=== PATIENT | male | born 1965 | race Caucasian/White ===

== ENCOUNTER 2017-04-28 17:15 | Emergency (ER) | payer OTHER ==
[2017-04-28] MEDS ORDERED: Tetan/Diph/Pertus SYR(Tdap)* 0.5 ML SYR(BOOSTRIX) use SYR IM ONE (19:56)
[2017-04-28] MEDS ORDERED: oxyCODONE/Acetamin 5/325 MG* TAB PO ONE (20:02)
--- NOTE | 2017-04-28 20:49 | RAD ---
INDICATION: Left third digit injury COMPARISON: None TECHNIQUE: AP, lateral, and oblique views were obtained. FINDINGS: There is no acute fracture. There is soft tissue injury near the tuft. There is no foreign body. IMPRESSION: SOFT TISSUE INJURY. NO FRACTURE OR FOREIGN BODY.
[2017-04-28] MEDS ORDERED: Cephalexin CAP* 500 MG PO ONE (21:21)
[2017-04-28] MEDS ORDERED: HYDROcodone/ACETAMIN 5-325 MG* 1 TAB PO ONE (21:21)
--- NOTE | 2017-04-28 21:25 | ED ---
Laceration/Wound HPI - HPI Summary HPI Summary: 51 male presents with complaints of left middle finger amputation while trying to change the height of his mower blade and it getting caught. Patient states this occurred ~2-3 hours ago. Bleeding is under control however his finger is very painful. Has FROM, did not injure the nail. No other injuries or complaints. Has not taken any medications. No PMHx. Touch makes the pain worse. Denies any bone involvement. Unknown last tetanus. Denies numbness/tingling. Has been icing. - History of Current Complaint Stated Complaint: FINGER LAC FROM CYBER ANALYST BLADE Hx Obtained From: Patient Mechanism of Injury: Sharp/Blunt Trauma - mower blade Onset/Duration: Sudden Onset Aggravating: Movement - touch Alleviating: Compression Timing: Constant Onset Severity: Moderate Current Severity: Moderate Pain Intensity: 6 Pain Scale Used: 0-10 Numeric Associated Signs & Symptoms: Pain Related Hx: Dominant Hand (Left) - Allergy/Home Medications Allergies/Adverse Reactions: Allergies Allergy/AdvReac Type Severity Reaction Status Date / Time No Known Allergies Allergy Verified 04/28/17 19:04 PMH/Surg Hx/FS Hx/Imm Hx Endocrine/Hematology History: Denies: Hx Anticoagulant Therapy, Hx Diabetes Cardiovascular History: Denies: Hx Hypertension Respiratory History: Denies: Hx Asthma - Surgical History Surgery Procedure, Year, and Place: n/a - Immunization History Immunizations Up to Date: Yes Infectious Disease History: No Infectious Disease History: Denies: Traveled Outside the [place] in Last 30 Days - Family History Known Family History: Positive: None - Social History Alcohol Use: Occasionally Substance Use Type: Reports: None Smoking Status (MU): Never Smoked Tobacco Review of Systems Constitutional: Negative Cardiovascular: Negative Respiratory: Negative Positive: Arthralgia, Myalgia - left middle finger Positive: Other - avulsion/amputation All Other Systems Reviewed And Are Negative: Yes Physical Exam Triage Information Reviewed: Yes Vital Signs On Initial Exam: Initial Vitals Temp Pulse Resp BP Pulse Ox 97.0 F 92 16 139/96 100 04/28/17 17:18 04/28/17 17:18 04/28/17 17:18 04/28/17 17:18 04/28/17 17:18 Vital Signs Reviewed: Yes Appearance: Positive: Well-Appearing, Pain Distress - moderate Skin: Positive: Warm, Skin Color Reflects Adequate Perfusion, Dry, Other - avulsion of left middle finger pad sparing nail and nail bed, anterior side only above DIP. no bone or tendon involvement or exposed. SQ tissue. no active bleeding, sensitive to touch. no foreign body. Negative: Cold, Numb, Cyanosis @ , Pale, Erythema @ Head/Face: Positive: Normal Head/Face Inspection Eyes: Positive: Normal, Conjunctiva Clear ENT: Positive: Hearing grossly normal Neck: Positive: Supple, Nontender Respiratory/Lung Sounds: Positive: Clear to Auscultation, Breath Sounds Present. Negative: Rales, Rhonchi, Wheezes Cardiovascular: Positive: Normal, RRR, Pulses are Symmetrical in both Upper and Lower Extremities - 2+ radial b/l. Negative: Murmur, Rub Musculoskeletal: Positive: Normal, Strength/ROM Intact, Pain @ - on palpation of anterior left middle finger avulsion area, Other - no crepitus, step off, no deformity other than the avulsion of skin SQ of anterior finger pad left middle. Negative: Limited @, Interruption @, Edema Left, Edema Right Neurological: Positive: Normal, Sensory/Motor Intact - sensation intact up to area that was avulsed, Alert, Oriented to Person Place, Time, CN Intact II-III, Reflexes Intact, NV Bundle Intact Distally, Normal Gait Psychiatric: Positive: Affect/Mood Appropriate Diagnostics - Vital Signs Vital Signs Temp Pulse Resp BP Pulse Ox 04/28/17 20:08 20 04/28/17 19:01 98.1 F 92 18 139/96 98 04/28/17 17:18 97.0 F 92 16 139/96 100 - Laboratory Lab Statement: Any lab studies that have been ordered have been reviewed, and results considered in the medical decision making process. - Radiology left middle finger Xray Interpretation: Positive (See Comments) - soft tissue injury. negative for fracture. Radiology Interpretation Completed By: Radiologist - soft tissue injury. negative for fracture. Laceration Repair Course/Dx - Course Course Of Treatment: after irrigation and letting finger soak, xeroform applied along with pressure sterile dressing. does not have remaining avulsed finger with him as it was in the mower blade. Bleeding controlled. Given pain management. Continue at home along with ice, compression and elevation. Given first dose of antibiotic, continue at home. X-ray obtained and negative for fracture. Aware of worsening signs and symptoms to watch out for. Follow up ortho. - Differential Dx Differental Diagnoses: Abrasion, Avulsion, Dehiscence, Fracture, Hematoma, Laceration - Clinical Impression Provider Diagnoses: Avulsion, finger tip Discharge - Discharge Plan Condition: Stable Disposition: HOME Prescriptions: Cephalexin CAP* [Keflex CAP*] 500 mg PO TID #21 cap HYDROcodone/ACETAMIN 5-325 MG* [[place] 5-325 TAB*] 1 tab PO Q4H PRN #20 tab MDD 3 PRN Reason: Pain Patient Education Materials: Skin Avulsion (ED) Referrals: Miles PETERSEN,Qamar Gibson [Primary Care Provider] - Additional Instructions: Keep dressing on for 48 hours. Do not get wet. Apply a new dressing as directed. You may gently rinse area to cleanse. Keep clean and dry. Follow up with PCP and ortho to ensure proper healing. If new symptoms develop such as signs of infection please seek medical attention promptly. Area will be sensitive, take medication prescribed for pain as needed. Cool compress and elevate. Take antibiotics as directed, do not miss a dose.
[2017-04-28 21:41] VITALS: BP 126/89
== END 2017-04-28 21:31 | disposition home or self-care (01) ==
LOC: ED 17:15
DX: S68.113A Complete traumatic metacarpophalangeal amputation of left middle finger, initial encounter (principal); W26.8XXA Contact with other sharp object(s), not elsewhere classified, initial encounter; Y93.89 Activity, other specified; Y92.9 Unspecified place or not applicable; Z23 Encounter for immunization
CPT/HCPCS: 73140; 90471; 90715; 99282; A9270-GY

== ENCOUNTER → 2019-11-01 09:47 | Day surgery (SDC) | payer BC ==
[~2019-11-01 09:47] MED LIST: Buffered Lidocaine 1% SYRIN* 1 ML/SYRINGE INTRADERM ONE; Bupivacaine 0.5% W/EPI SDV* 10 ML VIAL INJ ONE; Dexamethasone IV* 4 MG/ML 1 ML (4 MG) ONE; EPINEPHRINE 1 MG/ML 1 ML VIAL ONE; HYDROcodone/ACETAMIN 5-325 MG* 1 TAB PO PRN; HYDROmorphone INJ1* 1 MG/ML SYRINGE IV PRN; HYDROmorphone INJ1* 1 MG/ML SYRINGE ONE; Ketorolac INJ* 30 MG/ML 1 ML VIAL ONE; Lactated Ringers 1000 ML Bag* 1,000 ML IV SCH; Lidocaine 2% PF* 10 ML AMP ONE; Midazolam* 1 MG/ML 2 ML VIAL (2 MG) ONE; Naloxone* 0.4 MG/ML 1 ML VIAL IV PRN; Ondansetron INJ* 2 MG/ML VIAL ONE; Propofol* 10 MG/ML 20 ML BTL ONE; ceFAZolin 2 GM PREMIX in ORs 2 GM/50 ML BAG ONE; fentaNYL* 50 MCG/ML 2 ML VIAL (100 MCG VIAL) ONE
[2019-11-01 15:36] VITALS: BP 112/74
--- NOTE | 2019-11-02 01:48 | OP ---
DATE OF OPERATION: 11/01/19 - [facility] DATE OF : 69 SURGEON: Lazaro Lopez MD PROPERTY FIELD ADJUSTER: SYMONE Rock. A physician operating room assistant was required for the length of the operation for assistance with patient positioning, knee manipulation, and closure. ANESTHESIOLOGIST: Dr. Pablo Liu. ANESTHESIA: General anesthesia, local anesthesia using 30 cc of Marcaine 0.25% with epinephrine. PRE-OP DIAGNOSIS: Left knee medial meniscus tear. POST-OP DIAGNOSES: 1. Left knee medial meniscus tear. 2. Left knee lateral meniscus tear. OPERATIVE PROCEDURE: Left knee arthroscopic partial medial and partial lateral meniscectomy. ANTIBIOTICS: Ancef 2 g IV. IV FLUIDS: See Anesthesia note. [id number] TIME: 22 minutes. TOURNIQUET TIME: 24 minutes at 300 mmHg left proximal thigh tourniquet. SPECIMEN: None. IMPLANTS: None. COMPLICATIONS: None. ESTIMATED BLOOD LOSS: Minimal. 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 The patient is a kidney donor, so he cannot take NSAIDs. The patient did try a full spectrum otherwise of nonoperative management and failed to sufficiently respond to it. The patient opted for surgery. Discussed with the patient the heterogenous nature of meniscal tears and the lack of predictability with postoperative recovery. Discussed risks and potential complications. MRI had demonstrated a meniscal tear with some displacement. DESCRIPTION OF PROCEDURE: In preoperative holding, the patient signed a written consent. Operating extremity was marked in the preoperative holding. The patient was taken back to the operating room and placed supine on operating table. Sedated and intubated. A tourniquet was placed about the left proximal thigh. The left distal thigh was placed in a circumferential thigh borja. The left lower extremity was prepped and draped. Surgical time-out performed. Esmarch was applied and tourniquet was elevated. Anterolateral knee arthroscopy portal was established using standard technique. Commenced diagnostic arthroscopy. Patellofemoral compartment had no significant articular cartilage wear. The amount of bursitis prolapsing into the patellofemoral compartment was not significant. Dropped down to the intercondylar notch. ACL and PCL intact. Moved directly to the medial compartment. There was clearly some tearing in the posterior horn and posterior body of the medial meniscus. Established anteromedial knee arthroscopy portal under direct visualization. Probed the meniscus tear. There was clearly a partial thickness radial tear at the junction of the posterior body and posterior horn. There also appeared to be some undersurface tearing of the posterior horn. I debrided the medial meniscus back to a stable rim of tissue using an arthroscopic shaver as well as meniscal biters. There was still a generous amount of meniscal rim present to protect the patient in some way from degenerative changes in that medial compartment. The posterior horn of the medial meniscus may still have had a little bit more degeneration to it, but there was no unstable tear and so I stopped resecting there to leave sufficient meniscus there. I worked from anteromedial and anterolateral portals. I established a second anterolateral portal to work through for this compartment. The patient had no significant disease of the articular cartilage in this compartment. I would say grade 1 changes or maybe early grade 2 in several locations. I moved to the lateral compartment. There were some grade 1-2 changes of the lateral tibial plateau. There was some inner surface fraying, tearing of the lateral meniscus posterior horn. I used an arthroscopic shaver to smooth out that meniscus tear. There was also some fraying of the body that I also smoothed out. I visualized my medial meniscus again and probed it again. I was happy with it. Removed instruments and fluid from the knee joint. Closed skin incisions with [id number] and 12 stitches using nylon 3-0 suture. Local anesthetic was injected. Xeroform, 4x4s, ABDs, sterile Webril, Earnest bandage from foot to proximal groin. Cooling unit. DISPOSITION: The patient will be discharged with wound care instructions. Physical therapy to start immediately. Percocet as needed for pain control. The patient will follow up 12 to 14 days postoperatively. [id number]/[facility] #: [id number] SHERRY
== END | disposition home or self-care (01) ==
LOC: OR 09:47
PROVIDERS: ATTEND Orthopaedic Surgery
DX: S83.242A Other tear of medial meniscus, current injury, left knee, initial encounter (principal); S83.282A Other tear of lateral meniscus, current injury, left knee, initial encounter; X58.XXXA Exposure to other specified factors, initial encounter; Y92.9 Unspecified place or not applicable; M17.12 Unilateral primary osteoarthritis, left knee; Z90.5 Acquired absence of kidney; R06.83 Snoring
CPT/HCPCS: J0690; J1100; J1170; J1885; J2001; J2250; J2405; J2704; J3010